=== PATIENT | male | born 1980 | race Caucasian/White ===

== ENCOUNTER 2020-05-05 14:46 | Emergency (ER) | payer MEDICAID ==
[~2020-05-05] VITALS: Ht 170.2 cm; Wt 63.5 kg
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
[2020-05-05] MEDS ORDERED: HYDROcodone/Acetamin 7.5/325 tab ORAL ONE (15:00)
[2020-05-05] MEDS ORDERED: Tetanus/Diptheria/Pertussis IM ONE (15:00)
[2020-05-05] MEDS ORDERED: Bacitracin Oint UD TOPIC ONE ×2 (15:00→15:01)
--- NOTE | 2020-05-05 15:10 | NUR ---
ED Nurse Note: RN cleansed/irrigated abrasions with saline then patted dry and applied bacitracin. Patient refused cleansing of his right elbow. [place] [facility] notified.
--- NOTE | 2020-05-05 15:41 | Diagnostic Imaging Report ---
EXAM: XR Right Ankle Complete, 3 or More Views CLINICAL HISTORY: PAIN TECHNIQUE: Frontal, lateral and oblique views of the right ankle. COMPARISON: No relevant prior studies available. FINDINGS: Bones/joints: Unremarkable. No acute fracture. No dislocation. Mild spurring of the superior talus. Soft tissues: Soft tissue swelling. IMPRESSION: Soft tissue swelling. No acute fracture or malalignment.
--- NOTE | 2020-05-05 15:42 | Diagnostic Imaging Report ---
EXAM: XR Right Foot Complete, 3 or More Views CLINICAL HISTORY: PAIN TECHNIQUE: Frontal, lateral and oblique views of the right foot. COMPARISON: No relevant prior studies available. FINDINGS: Bones/joints: Mild spurring superior talus. Joint spaces are maintained. No acute fracture. No dislocation. Soft tissues: Diffuse soft tissue swelling. No radiopaque foreign body. IMPRESSION: Diffuse soft tissue swelling. No acute fracture or malalignment.
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
[2020-05-05] MEDS ORDERED: NORCO 5-325 TA1 EAC1 ORAL (16:53)
[2020-05-05] MEDS ORDERED: IBUPROFEN600 M1 ORAL (16:53)
[2020-05-05] MEDS ORDERED: BACITRACIN15 GM TOPIC (16:53)
[2020-05-05 17:13] VITALS: BP 136/70
--- NOTE | 2020-05-05 17:13 | NUR ---
ER DISCHARGE NOTE: Patient is cleared to be discharged per PA, pt is aox4, on room air, with stable vital signs. pt was given dc and prescription instructions, also instructed patient on how to use crutches. pt was able to verbalize understanding, pt id band removed without complications. pt is able to ambulate with crutches. pt took all belongings.
== END 2020-05-05 17:24 | disposition home or self-care (01) ==
LOC: EDBD 14:46 → EDSEX 14:46 → EMR 14:58
DX: S93.601A Unspecified sprain of right foot, initial encounter (principal); S93.401A Sprain of unspecified ligament of right ankle, initial encounter; S30.811A Abrasion of abdominal wall, initial encounter; S80.211A Abrasion, right knee, initial encounter; S90.811A Abrasion, right foot, initial encounter; S90.511A Abrasion, right ankle, initial encounter; V09.9XXA Pedestrian injured in unspecified transport accident, initial encounter; Y93.55 Activity, bike riding; Y92.9 Unspecified place or not applicable; Z23 Encounter for immunization
CPT/HCPCS: 73610; 73630; 90471; 90715; Z7502; 99284